=== PATIENT | female | born 1960 | race Caucasian/White ===

== ENCOUNTER 2023-01-05 17:46 | Emergency (ER) | payer MEDICARE, OTHER ==
[2023-01-05] MEDS ORDERED: Sodium Chloride 0.9% 10 ML Syringe FLUSH PRN (17:53)
[2023-01-05 18:47] LABS: PTT,PARTIAL THROMBOPLSTIN TIME 26.2 SEC (23.6-33.6)
[2023-01-05 18:57] LABS: ANION GAP 10.8 mmol/L (5-15); CHLORIDE,CL 101 mmol/L (98-107); ESTIMATED GFR 100 mL/min (>=60); SODIUM,NA 137 mmol/L (136-145)
[2023-01-05 19:19] LABS: CORONAVIRUS COVID-19 NAA NEGATIVE (NEGATIVE); RESPIRATORY SYNCYTIAL VIR NAA NEGATIVE (NEGATIVE)
== END 2023-01-05 19:27 | disposition home or self-care (01) ==
LOC: VM.ED 17:46
DX: F41.9 Anxiety disorder, unspecified (principal); J44.9 Chronic obstructive pulmonary disease, unspecified; Z79.899 Other long term (current) drug therapy; Z20.822 Contact with and (suspected) exposure to COVID-19
CPT/HCPCS: 0241U; 36415; 71045; 80053; 82803; 83605; 83735; 83880; 84484; 85025; 85610; 85730; 86140; 87040; 93010; 99284; 99285